=== PATIENT | female | born 1990 | race Caucasian/White ===

== ENCOUNTER 2022-04-09 10:05 | Outpatient (REF) | payer OTHER, SELFPAY ==
[2022-04-09 14:31] LABS: Hematocrit 40.1 % (37.0-47.0); Hemoglobin 13.1 g/dl (12.0-16.0); Mean Corpuscular HGB Conc 32.7 g/dl (31.0-35.0); Mean Corpuscular Hemoglobin 27.6 pg (27.0-33.0); Mean Corpuscular Volume 84.6 fL (80.0-98.0); Mean Platelet Volume 12.7 fL (9.4-12.3); Platelet Count 333 X10*3/uL (160-400); Red Blood Count 4.74 X10*6/uL (4.20-5.50); Red Cell Distribution Width 13.2 % (11.0-16.0); White Blood Count 5.9 X10*3/uL (4.8-10.8)
[2022-04-09 14:42] LABS: Alanine Aminotransferase 23 U/L (0-31); Albumin Level 4.1 g/dL (3.5-5.0); Alkaline Phosphatase 56 U/L (39-117); Anion Gap 16 (12-20); Aspartate Amino Transferase 14 U/L (5-31); Bilirubin Total 0.5 mg/dL (0.0-1.0); Blood Urea Nitrogen 9 mg/dL (9-16); Calcium 9.9 mg/dL (8.4-10.2); Carbon Dioxide 21 mmol/L (22-29); Chloride 106 mmol/L (96-108); Cholesterol 172 mg/dL; Estimated Glomerular Filt Rate > 60; Glucose Fasting 87 mg/dL (60-99); HDL Cholesterol 63 mg/dL; LDL Cholesterol Calculated 88 mg/dl; Potassium 4.6 mmol/L (3.3-5.1); Sodium 138 mmol/L (135-145); Total Protein 7.1 g/dL (6.5-8.0); Triglycerides 108 mg/dL
[2022-04-09 15:07] LABS: TSH reflex Free T4 2.36 uIU/mL (0.32-4.0)
== END 2022-04-09 10:06 | disposition home or self-care (01) ==
LOC: HO.WFDLDS 10:05
PROVIDERS: Visit Provider Hospitalist
DX: Z00.00 Encounter for general adult medical examination without abnormal findings (principal)
CPT/HCPCS: 36415; 80053; 80061; 84443; 85027

== ENCOUNTER 2023-01-28 11:46 | Outpatient (AMB) | payer OTHER, SELFPAY ==
--- NOTE | 2023-01-28 11:51 | MHC.PC.OV ---
Vital Signs 01/28/23 11:53 Height 5 ft Weight 208 lb 4 oz BMI 40.7 BP 126/70 Blood Pressure Location Rt brachial Position Sitting Respiration 12 Pulse 73 Pulse Source Pulse Oximeter Temp 97.7 F Temp Source Temporal Artery Scan Pulse Oximetry (%) 99 Oxygen Delivery Method Room Air Intake Visit Reasons: cyst on right wrist Intake Note: Patient states that the cyst started forming 10 years ago and has came and went on and off. Patient states that it is causing pain and had recently came back a year ago. 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 Accompanied by: Self / Same As Patient Allergies No Known Allergies Allergy (Verified 01/28/23 12:03) Medication List - Last Reconciled 01/28/23 by Nhi Melchor CNP norgestimate-ethinyl estradiol 0.25-35 mg-mcg 1 tab PO DAILY Tobacco use date assessed: 01/28/23 Dental Screening Dental Screen Date: 01/28/23 Did you have a dental visit in the last 12 months?: Yes Did you have a dental problem in the last 6 months where you did not have access to dental care?: Yes Was dental information given to patient?: Patient has dentist HPI HPI Comments History of Present Illness Details 32-year-old female presents with complaints of a cyst in her right wrist. She notes that the cyst has been present, on and off, for past 10 years. She reports moderate pain with flexion and extension of the wrist. [facility] Medical History (Updated 01/28/23 @ 12:25 by Nhi Melchor CNP) Hypothyroidism Surgical History (Updated 01/28/23 @ 12:00 by Jyoti vIy MA) No pertinent past surgical history Family History Father Heart disease Other No family history of mental disorder Social History Housing: Apartment Patient Tobacco Use Status: Never used Tobacco e-Cigarette/Vaping Use: Never Used service: No Current occupational status: other Current occupation: self employed Cognitive needs: No Hearing needs: No Vision needs: No Questionnaire Thrive Questionnaire Date Thrive assessed: 01/28/23 I am a: Patient What is your living situation today?: I have a steady place to live Within the past 12 months, did the food you bought not last and you didn't have the money to get more?: Never true Within the past 12 months, did you worry whether your food would run out before you got money to buy more?: Never true Do you have trouble paying for medicines?: No Do you have trouble getting transportation to medical appointments?: No Do you have trouble paying your heating and electricity bill?: No Do you have trouble taking care of your child, family member or friend?: No Do you have trouble with day-to-day activities such as bathing, preparing meals, shopping, managing finances, etc.?: No Are you currently unemployed and looking for a job?: No Are you interested in more education?: No Please select the resources that you would like help with: None Currently or been in a relationship where the following occur: no concerns reported AUDIT C Alcohol Use Questionnaire (AUDIT-C) 1. How often do you have a drink containing alcohol?: Monthly or less 2. How many drinks containing alcohol do you have on a typical day when you are drinking?: 1 or 2 3. How often do you have six or more drinks on one occasion?: Never Total Score: 1 YEN-7 AMB Questionnaire YEN-7 Date YEN - 7 assessed: 01/28/23 Source: Developed by Drs. Ronaldo Nelson, Gill Zamorano, Lonnie Zimmerman and colleagues, with an educational radha from [employer]. Review of Systems Const Details: Const Denies chills, Denies fatigue, Denies fever(s), Denies headache(s) and Denies weakness ENT Denies change in vision, Denies dizziness, Denies headache(s), Denies hearing loss, Denies nasal congestion, Denies sinus pain, Denies sinus pressure and Denies sore throat Resp Denies cough, Denies dyspnea, Denies wheezing and Denies other (shortness of breath) Cardio Denies chest pain, Denies lightheadedness, Denies dyspnea and Denies other (palpitations) Neuro Denies dizziness, Denies headache(s), Denies numbness, Denies tingling and Denies weakness Musc Reports as per HPI Psych Denies anxiety, Denies depression, Denies memory?loss Endo Denies fatigue Aller/Immun Denies wheezing Physical exam (Primary Care) Vital Signs: Last Vital Signs Temp 97.7 F 01/28/23 11:53 Pulse 73 01/28/23 11:53 Resp 12 01/28/23 11:53 BP 126/70 01/28/23 11:53 Pulse Ox 99 01/28/23 11:53 Oxygen Delivery Method Room Air 01/28/23 11:53 BMI result Body Mass Index 40.7 Tobacco/Smoking Status: Tobacco use Status Tobacco use date assessed 01/28/23 01/28/23 12:00 Patient Tobacco Use Status Never used Tobacco 01/28/23 12:00 e-Cigarette/Vaping Use Never Used 01/28/23 12:00 PHQ-9: PHQ-9 Score PHQ-9: Total score 12 01/28/23 17:07 Thrive Assessment: Date of Thrive Assessment Date Thrive assessed 01/28/23 01/28/23 12:04 Currently or been in a relationship where the following occur: no concerns reported Const Other: Const General: well developed; No acute distress Nutritional Appearance: well nourished Orientation/consciousness: patient oriented x3 HEENT Head: Yes normocephalic and Yes atraumatic Eyes General: appearance normal, both eyes and all related structures Pupils: Equal, round and reactive pupils present EOM: EOMs intact bilaterally Resp Effort & Inspection: normal respiratory effort Auscultation: clear to auscultation bilaterally Cardio Rate: regular rate Rhythm: regular rhythm Heart sounds: S1 normal heart sound present, S2 normal heart sound present, no gallops, no murmurs and no rubs Bruits: no abdominal aortic bruits and no carotid bruits Musc Approximately 1.5 cm round, firm, mobile lump on the dorsum right wrist, consistent with dorsal wrist ganglion cyst, CMS normal, radial pulse is normal, tenderness with active ROM. No erythema, edema, or trauma no Neuro General: patient oriented x3 and gait normal, no focal neuro deficit Cranial nerves: Yes Equal, round and reactive pupils present Psych Affect: normal affect Assessment and Plan Assessment & Plan (1) Ganglion cyst of dorsum of right wrist: Code(s): M67.431 - Ganglion, right wrist Plan: 32-year-old female presents with complaints of a cyst in her right wrist. She notes that the cyst has been present, on and off, for past 10 years. She reports moderate pain with flexion and extension of the wrist. Approximately 1.5 cm round, firm, mobile lump on the dorsum right wrist, consistent with dorsal wrist ganglion cyst, CMS normal, radial pulse is normal, tenderness with active ROM. No erythema, edema, or trauma noted. May take Tylenol or Motrin for pain or discomfort Warm/cool compresses encouraged May use a wrist brace for stability of the joint to reduce pain or discomfort Referred to general surgery Follow-up with worsening or new signs and symptoms Verbalized understanding and agreed with treatment plan. Orders: Referrals General Surgery Referral M67.431 - Ganglion, right wrist Coding Level of Care Code Est Pt Level 3 (71952) Diagnoses Ganglion cyst of dorsum of right wrist M67.431 Time Spent (min) 25
[2023-01-28 11:53] VITALS: BP 126/70; PULSE 73; RESP 12; TEMP 36.5; O2SAT 99; BMI 40.7
== END 2023-01-28 12:20 | disposition home or self-care (01) ==
PROVIDERS: PCP Hospitalist; Visit Provider Nurse Practitioner Family
DX: M67.431 Ganglion, right wrist (principal)
CPT/HCPCS: 99213

== ENCOUNTER 2023-03-16 11:00 | Outpatient (AMB) | payer OTHER, SELFPAY ==
[2023-03-16 11:05] VITALS: BMI 40.6
--- NOTE | 2023-03-16 11:05 | MHC.OFFVIS ---
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 Patient states that the cyst started forming 10 years ago and has increase and decrease in size over the years. Patient states that it is causing pain and had recently came back a year ago. Patient would like to discuss aspiration vs surgical intervention. Allergies No Known Allergies Allergy (Verified 03/16/23 11:15) HPI crusher machine operator- Ganglion, right wrist HPI Details Ashwini is a 32 year old right hand dominant woman who presents to discuss a right wrist mass. She complains of a mass on the dorsal aspect of her right wrist. She says this has been present intermittently for ~10 years now, but over the last year it has been present and causing her pain with wrist motion. 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 [facility] Medical History (Updated 01/28/23 @ 12:25 by Nhi Melchor CNP) Hypothyroidism Surgical History (Updated 01/28/23 @ 12:00 by Jyoti Ivy MA) No pertinent past surgical history Family History Father Heart disease Other No family history of mental disorder Social History Housing: Apartment Patient Tobacco Use Status: Never used Tobacco e-Cigarette/Vaping Use: Never Used service: No Current occupational status: other Current occupation: self employed Cognitive needs: No Hearing needs: No Vision needs: No Review of Systems Const All systems reviewed & are unremarkable except as noted in HPI and below Physical Exam Vital Signs: BMI result Body Mass Index 40.6 Const General: cooperative, healthy appearing and no acute distress Orientation/consciousness: patient oriented x3 HEENT Head: Yes normocephalic and Yes atraumatic Eyes EOM: EOMs intact bilaterally Resp Effort & Inspection: normal respiratory effort and able to speak in complete sentences Cardio Jugular venous distension: no JVD Skin General skin exam: turgor normal Rashes: no rashes Neuro General: patient oriented x3 Extrem Other: Evaluation of Right Upper Extremity: The patient is alert, oriented, and in no acute distress Neuro: Median, Ulnar, Radial nerves motor and sensory intact and sensation is normal to the tips of all digits Vascular: Cap refill brisk ROM: She can make a fist and extend all her digits No locking or catching painless wrist ROM unless she was in full flexion or hyperextension, whereas she felt pain at the site of her cyst Skin: No lacerations or abrasions. General: No Ecchymosis. No Erythema or evidence of infection. There is a spherical mass on the dorsal central aspect of her wrist, consistent with a dorsal wrist ganglion, measuring ~1.2cm in diameter. This is fluid-filled and does not appear mobile Psych Appearance: grossly normal Affect: normal affect Attitude: cooperative Office Procedures Fracture Care Details: No fracture, aspiration Fracture Billing Code: Fracture Billing Code Results Reviewed Results Reviewed: 03/16/23 11:25 Lidocaine HCl 1 % [Xylocaine 1 %] 2 ml .ROUTE .STK-MED ONE methylPREDNISolone acetate [DEPO-MedroL] 40 mg .ROUTE .STK-MED ONE Assessment & Plan Assessment & Plan (1) Ganglion cyst of dorsum of right wrist: Code(s): M67.431 - Ganglion, right wrist Plan Assessment & Plan: 1. Right dorsal wrist ganglion Measuring ~1.2cm in diameter I educated her about this condition I discussed operative and non-operative treatment options The patient would like to proceed with aspiration today Aspiration #1: The risks and benefits of aspiration, including but not limited to risk of damage to blood vessels, nerves, tendons, infection, failure to improve symptoms, increased pain, and possible need for further aspirations or surgical intervention. After obtaining written consent, I sterilely prepped the area over the right wrist. I then injected subcutaneously with a small amount 1% lidocaine. I then passed an 18 gauge needle into the ganglion and aspirated some clear viscous fluid consistent with a ganglion. Some remaining viscous fluid was then pushed out of the ganglion. The patient tolerated this well and with no complications. She can follow up prn Scribed for Jyoti Farmer MD by Frank Sutton medical technologist hematology, on 03/16/23 at 11:45 AM, EST. Coding Level of Care Code New Pt Level 3 (61208) Diagnoses Ganglion cyst of dorsum of right wrist M67.431 CPT Codes Fracture Care - Fracture Billing Code: Fracture Billing Code ([id number])
== END 2023-03-16 11:42 | disposition home or self-care (01) ==
PROVIDERS: PCP Hospitalist; Visit Provider Orthopaedic Surgery
DX: M67.431 Ganglion, right wrist (principal)
CPT/HCPCS: 20612; 99204

== ENCOUNTER → 2023-03-16 11:00 | Outpatient (BNVA) | payer OTHER, SELFPAY | PROVIDERS: PCP Hospitalist; Visit Provider Orthopaedic Surgery | DX: M67.431 Ganglion, right wrist (principal) | CPT/HCPCS: 20612; 99202; J1020 ==

== ENCOUNTER 2024-01-11 10:09 | Outpatient (AMB) | payer OTHER, SELFPAY ==
--- NOTE | 2024-01-11 10:28 | A.OFFVIS_ITS ---
Vital Signs 01/11/24 10:35 Height 5 ft Weight 208 lb BMI 40.6 Intake Visit Reasons: OV - Right Dorsal Ganglion Cyst - Returned Intake Note: Ashwini is a 33 year old right hand dominant female who presents today for a follow up of her right dorsal ganglion cyst. Patient reports lump returned around August that caused pain and discomfort with bending of wrist. Denies i njury. No numbness or tingling. She is requesting to have cyst aspirated. Allergies No Known Allergies Allergy (Verified 01/11/24 10:39) HPI HPI OV - Right Dorsal Ganglion Cyst - Returned: Details: Ashwini is a 33 year old right hand dominant woman who presents to discuss a right wrist mass. She has a hx of a right dorsal wrist ganglion, S/P aspiration on 03/16/23. She complains that her dorsal wrist mass has returned. She noticed it return in 08/2023 and it has been increasing in size. She says this has been causing her pain with wrist motion. 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 [facility] Medical History (Updated 01/28/23 @ 12:25 by Nhi Melchor CNP) Hypothyroidism Surgical History No pertinent past surgical history Family History Father Heart disease Other No family history of mental disorder Social History Housing: Apartment Patient Tobacco Use Status: Never used Tobacco e-Cigarette/Vaping Use: Never Used service: No Current occupational status: other Current occupation: self employed, right hand dominant Cognitive needs: No Hearing needs: No Vision needs: No Review of Systems Const All systems reviewed & are unremarkable except as noted in HPI and below Physical Exam Vital Signs: BMI result Body Mass Index 40.6 Const General: no acute distress and alert Orientation/consciousness: patient oriented x3 Neuro General: patient oriented x3 Extrem Other: Evaluation of Right Upper Extremity: The patient is alert, oriented, and in no acute distress Neuro: Median, Ulnar, Radial nerves motor and sensory intact and sensation is normal to the tips of all digits Vascular: Cap refill brisk ROM: She can make a fist and extend all her digits No locking or catching There is a spherical mass on the dorsal central aspect of her wrist, consistent with a dorsal wrist ganglion, measuring ~1.2cm in diameter. This is fluid-filled and does not appear mobile Psych Appearance: grossly normal Affect: normal affect Attitude: cooperative Office Procedures Fracture Care Details: No fracture, aspiration of ganglion Fracture Billing Code: Fracture Billing Code Assessment & Plan Assessment & Plan (1) Ganglion cyst of dorsum of right wrist: Code(s): M67.431 - Ganglion, right wrist Category: Medical Plan Assessment & Plan: 1. Right dorsal wrist ganglion, recurrent S/P aspiration Date of aspiration: 03/16/23 with recurrent sometime in 08/2023 Measuring ~1.2cm in diameter I educated her about this condition I discussed operative and non-operative treatment options The patient would like to proceed with a repeat aspiration today Aspiration #1: The risks and benefits of aspiration, including but not limited to risk of damage to blood vessels, nerves, tendons, infection, failure to improve symptoms, increased pain, and possible need for further aspirations or surgical intervention. After obtaining written consent, I sterilely prepped the area over the right wrist. I then injected subcutaneously with a small amount 1% lidocaine. I then passed an 18 gauge needle into the ganglion and aspirated some clear viscous fluid consistent with a ganglion. Some remaining viscous fluid was then pushed out of the ganglion. The patient tolerated this well and with no complications. She can follow up prn Scribed for Jyoti Farmer MD by saritha Boo, on 01/11/24 at 11:00 AM, EST. Scribe Plan - Not visible on output: Scribed for Jyoti Farmer MD by saritha Boo, on [ ] at [ ], EST. Coding Level of Care Code Est Pt Level 3 (41915) Diagnoses Ganglion cyst of dorsum of right wrist M67.431 CPT Codes Fracture Care - Fracture Billing Code: Fracture Billing Code ([id number])
[2024-01-11 10:35] VITALS: BMI 40.6
== END 2024-01-11 11:35 | disposition home or self-care (01) ==
PROVIDERS: PCP Hospitalist; Visit Provider Orthopaedic Surgery
DX: M67.431 Ganglion, right wrist (principal)
CPT/HCPCS: 20612; 99213

== ENCOUNTER → 2024-01-11 10:09 | Outpatient (BNVA) | payer OTHER, SELFPAY | PROVIDERS: PCP Hospitalist; Visit Provider Orthopaedic Surgery | DX: M67.431 Ganglion, right wrist (principal) | CPT/HCPCS: 20612; 99212 ==